=== PATIENT | male | born 1975 | race African-American/Black ===

== ENCOUNTER 2021-09-27 15:45 | Emergency (ER) | payer MEDICAID ==
[~2021-09-27] VITALS: Ht 185.4 cm; Wt 77.1 kg
[2021-09-27] MEDS ORDERED: SODIUM CHLORIDE 0.9% 1,000 ML IV ONE ×2 (16:15→18:15)
[2021-09-27 17:01] LABS: Basophils # (auto) 0.1 10 ^3/uL (0-0.2); Basophils % (auto) 0.9 % (0.0-2.0); Eosinophils # (auto) 0 10 ^3/uL (0-0.8); Eosinophils % (auto) 0.3 % (0.0-7.0); Hematocrit 43.5 % (41.0-53.0); Hemoglobin 14.3 g/dL (13.5-17.5); Lymphocytes % (auto) 43.8 % (10.0-50.0); Mean Corpuscular Hemoglobin 26.8 pg (28.0-32.0); Mean Corpuscular Volume 81.2 fL (80.0-100.0); Monocytes # (auto) 0.3 10 ^3/uL (0-1.3); Neutrophils # (auto) 3.4 10 ^3/uL (1.6-8.6); Nucleated Red Blood Cells % 0.2 %; Red Blood Cells 5.35 10^6/uL (4.5-5.90); Red Cell Distribution Width 14.7 % (11.8-14.3); White Blood Cell 6.9 10^3/uL (4.4-10.8)
[2021-09-27 17:15] LABS: Salicylate 2.5 mg/dL (2.8-20.0)
[2021-09-27 17:17] LABS: Acetaminophen < 2.0 ug/mL (10-30); Albumin 3.5 g/dL (3.4-5.0); Calcium 7.9 mg/dL (8.5-10.1); Potassium 4.5 mmol/L (3.5-5.1)
[2021-09-27 17:21] LABS: Bilirubin, Total 0.6 mg/dL (0.2-1.0); Total Protein 6.9 g/dL (6.4-8.2)
[2021-09-27 20:13] LABS: Urine Bacteria NONE SEEN /hpf (None Seen); Urine Blood Negative /uL (Negative); Urine Mucus FEW (None Seen); Urine Specific Gravity 1.029 (1.001-1.035); Urine WBC 1 /hpf (0 - 3)
[2021-09-27 20:28] LABS: Amphetamine Screen, Urine POSITIVE (NEGATIVE); Barbiturate Scree,Urine NEGATIVE (NEGATIVE); Benzodiazephine Screen, Urine NEGATIVE (NEGATIVE); Cocaine Screen, Urine NEGATIVE (NEGATIVE); Phencyclidine Screen, Urine NEGATIVE (NEGATIVE)
[2021-09-27 20:37] LABS: Cannabinoid Screen, Urine POSITIVE (NEGATIVE); Opiate Scree,Urine NEGATIVE (NEGATIVE)
[2021-09-27] MEDS ORDERED: THIAMINE HCL 100 MG TAB PO ONE (22:00)
[2021-09-27 22:54] LABS: Albumin 3.2 g/dL (3.4-5.0); Calcium 7.5 mg/dL (8.5-10.1); Potassium 4.1 mmol/L (3.5-5.1)
[2021-09-27 22:56] LABS: BUN/Creatinine Ratio 21.2
[2021-09-27 22:59] LABS: Bilirubin, Total 0.5 mg/dL (0.2-1.0); Total Protein 6.1 g/dL (6.4-8.2)
[2021-09-28] MEDS ORDERED: ONDANSETRON HCL 4 MG/2 ML VIAL IV ONE (02:45)
[2021-09-29] MEDS ORDERED: LITHIUM CARBONATE 300 MG TAB PO ONE ×2 (08:00→22:00)
[2021-09-29] MEDS ORDERED: lamoTRIgine 100 MG TAB PO ONE ×2 (08:00→22:00)
[2021-09-29] MEDS ORDERED: OLANZapine 5 MG TAB PO ONE (22:00)
[2021-09-30] MEDS ORDERED: lamoTRIgine 100 MG TAB PO SCH (22:00)
[2021-09-30] MEDS ORDERED: LITHIUM CARBONATE 300 MG TAB PO SCH (22:00)
[2021-09-30] MEDS ORDERED: OLANZapine 5 MG TAB PO SCH (22:00)
[2021-10-01] MEDS ORDERED: lamoTRIgine 100 MG TAB ONE ×2 (05:33→05:40)
[2021-10-01] MEDS ORDERED: OLANZapine 5 MG TAB ONE (05:33)
[2021-10-01] MEDS ORDERED: LITHIUM CARBONATE 300 MG TAB ONE (05:33)
[2021-10-01 09:42] VITALS: BP 100/65
[2021-10-01] MEDS ORDERED: lamoTRIgine 100 MG TAB PO SCH (10:45)
[2021-10-01] MEDS ORDERED: LITHIUM CARBONATE 300 MG TAB PO SCH (10:45)
[2021-10-01] MEDS ORDERED: OLANZapine 5 MG TAB PO SCH (22:00)
== END 2021-10-01 17:50 | disposition home or self-care (01) ==
LOC: EDBD 15:45 → ER 15:45
DX: R45.851 Suicidal ideations (principal); F10.129 Alcohol abuse with intoxication, unspecified; F19.10 Other psychoactive substance abuse, uncomplicated; R41.82 Altered mental status, unspecified; F32.9 Major depressive disorder, single episode, unspecified; F20.9 Schizophrenia, unspecified; R94.31 Abnormal electrocardiogram [ECG] [EKG]; Z59.00 Homelessness unspecified; Y90.8 Blood alcohol level of 240 mg/100 ml or more
CPT/HCPCS: 36415; 71046; 80053; 80178; 80307; 80320; 80329; 81001; 83735; 85025; 87426; 93005; 96361; 96374; 99285; J2405; J7030